=== PATIENT | male | born 1975 | race Two or more races ===

== ENCOUNTER → 2020-05-12 | Day surgery (SDC) | payer BC ==
[~2020-05-12] VITALS: Ht 172.7 cm; Wt 99.8 kg
[~2020-05-12] MED LIST: ACETAMINOPHEN 500 MG TAB PO PRN; ADENOSINE 6 MG/2 ML INJ IV ONE; ANGIOMAX 250 MG VIAL IV ONE; AZITHROMYCIN 500MG/ 250ML 250 ML IV ONE; HYDROcodone-ACET 5/325MG TAB PO PRN; IOHEXOL 350 MG/ML 100ML IJ ONE; LIDOCAINE 2%HCL (LOCAL ANESTH.) INJ 20ML MDV ONE; MIDAZOLAM HCL 1MG/1ML-2 ML VIAL ONE; MILK OF MAGNESIA 30ML SUSP PO ONE; MORPHINE SULF INJ 2 MG/ML SYRINGE 1ML IV ONE; NITROGLYCERIN 0.4 MG SL TAB SL PRN; ONDANSETRON HCL 4 MG/2 ML VIAL IV ONE; SODIUM CHL 0.9% 0 ML ONE; ZOLPIDEM TARTRATE 5 MG TAB PO PRN; fentaNYL CITRATE 100 MCG/2 ML VL ONE
[2020-05-12 19:00] VITALS: BP 116/74
[2020-05-12 19:08] LABS: Basophils # (auto) 0.1 10 ^3/uL (0-0.2); Eosinophils # (auto) 0 10 ^3/uL (0-0.8); Lymphocytes # (auto) 0.5 10 ^3/uL (0.4-5.4); Mean Corpuscular Hemoglobin 29.9 pg (28.0-32.0); Mean Corpuscular Hgb Conc. 33.5 g/dL (32.0-36.0); Neutrophils # (auto) 12.8 10 ^3/uL (1.6-8.6); White Blood Cell 13.7 10^3/uL (4.4-10.8)
[2020-05-12 19:10] LABS: Basophils % (auto) 0.7 % (0.0-2.0); Hematocrit 46.5 % (41.0-53.0); Hemoglobin 15.6 g/dL (13.5-17.5); Lymphocytes % (auto) 3.6 % (10.0-50.0); Mean Corpuscular Volume 89.2 fL (80.0-100.0); Monocytes # (auto) 0.3 10 ^3/uL (0-1.3); Neutrophils % (auto) 93.7 % (37.0-80.0); Nucleated Red Blood Cells % 0.2 %; Platelet Count (auto) 748 10^3/uL (140-450); Red Blood Cells 5.21 10^6/uL (4.5-5.90)
[2020-05-12 19:30] LABS: Albumin 2.9 g/dL (3.4-5.0); BUN/Creatinine Ratio 22.5; Calcium 8.7 mg/dL (8.5-10.1); Magnesium 2.5 mg/dL (1.6-2.6); Potassium 4.2 mmol/L (3.5-5.1)
[2020-05-12 19:35] LABS: Bilirubin, Total 0.7 mg/dL (0.2-1.0); Total Protein 6.9 g/dL (6.4-8.2)
[2020-05-12 19:49] LABS: INR 1.04 (0.9-1.15); Partial Thromboplastin Time 27.5 sec (23.0-31.2)
--- NOTE | 2020-05-12 21:01 | NUR ---
PT TRANSFERRED TO CT VIA GURNEY, MONITOR,O2. CTA PROCEDURE DONE AND TRANSFERRED BACK TO MACHINE PLUG SHAPER ROOM 1 ON GURNEY, MONITOR,02 2L /MIN PT TOLERATED PROCEDURE. DRSG TO RT GROIN CDI. NO OOZING/HEMATOMA. DENIES CHEST PAIN/DISCOMFORT AT THIS TIME
--- NOTE | 2020-05-12 21:44 | NUR ---
NOTIFIED OG NORMAL CTA RESULTS. OKAYED TO DC HOME.
--- NOTE | 2020-05-12 21:46 | NUR ---
DC INSTRUCTIONS GIVEN TO PT PT VERBALIZES UNDERSTANDING/ CALLED AND GAVE INSTRUCTIONS OVER PHONE. IV DC'D WITH CATHETER INTACT. GROIN SITE INTACT WITH NO S&S OF HEMATOMA/OOZING. INSTRUCTIONS COPY. WITH Addendum: 05/12/20 at 2152 by Milagro Rodriguez RN RN COPY WITH PT. PT UP AND OOB GETTING DRESSED WITH NO ASSISTANCE
--- NOTE | 2020-05-12 21:56 | NUR ---
PT DC/D TO PRIVATE VEHICLE VIA .
== END | disposition home or self-care (01) ==
LOC: EDUNIT# 17:38 → EDBD 17:39 → ER 17:45 → CATH 17:46
PROVIDERS: ATTEND Specialist
DX: R07.89 Other chest pain (principal); I25.810 Atherosclerosis of coronary artery bypass graft(s) without angina pectoris; E78.5 Hyperlipidemia, unspecified; E66.9 Obesity, unspecified; Z79.899 Other long term (current) drug therapy; Z98.890 Other specified postprocedural states; Z86.19 Personal history of other infectious and parasitic diseases; Z68.33 Body mass index [BMI] 33.0-33.9, adult
CPT/HCPCS: 36415; 71045; 71260; 74177; 80053; 83615; 83735; 83880; 84443; 84484; 85025; 85379; 85610; 85730; 93459; 96374; 96375; 99291; C1760; C1887; C1894; J1644; J2250; J2270; J2405; J3010; J7030; Q9967; 99152; 99153; J0153